=== PATIENT | male | born 1975 | race Caucasian/White ===

== ENCOUNTER → 2024-10-01 08:38 | Outpatient (REF) | payer BC, SELFPAY | LOC: HWRAD 08:38 | PROVIDERS: ATTENDING PHYSICIAN Internal Medicine Gastroenterology; FAMILY PHYSICIAN Family Medicine | DX: K82.4 Cholesterolosis of gallbladder (principal); K90.0 Celiac disease | CPT/HCPCS: 76700 ==

== ENCOUNTER → 2024-10-07 09:15 | Outpatient (REF) | payer BC, SELFPAY | LOC: HWRCS 09:15 | PROVIDERS: ATTENDING PHYSICIAN Student in an Organized Health Care Education/Training Program; FAMILY PHYSICIAN Family Medicine | DX: R06.02 Shortness of breath (principal) | CPT/HCPCS: 93306 ==

== ENCOUNTER → 2025-02-02 07:12 | Outpatient (REF) | payer BC, SELFPAY | LOC: RSP 07:12 | PROVIDERS: ATTENDING PHYSICIAN Student in an Organized Health Care Education/Training Program; FAMILY PHYSICIAN Family Medicine | DX: M34.9 Systemic sclerosis, unspecified (principal); E78.2 Mixed hyperlipidemia | CPT/HCPCS: 71250; 75571; 88738; 94010; 94727; 94729 ==

== ENCOUNTER → 2025-02-02 14:57 | Outpatient (REF) | payer SELFPAY | LOC: RAD 14:57 | PROVIDERS: ATTENDING PHYSICIAN Family Medicine | DX: E78.2 Mixed hyperlipidemia (principal) | CPT/HCPCS: 75571 ==

== ENCOUNTER → 2025-04-28 10:13 | Outpatient (REF) | payer BC, SELFPAY | LOC: HWRAD 10:13 | PROVIDERS: ATTENDING PHYSICIAN Family Medicine; FAMILY PHYSICIAN Family Medicine | DX: R07.89 Other chest pain (principal); R05.1 Acute cough | CPT/HCPCS: 71046; 71100 ==

== ENCOUNTER → 2025-05-04 09:21 | Outpatient (REF) | payer BC, SELFPAY | LOC: EMG 09:21 | PROVIDERS: ATTENDING PHYSICIAN Family Medicine; FAMILY PHYSICIAN Family Medicine | DX: M79.671 Pain in right foot (principal); M34.9 Systemic sclerosis, unspecified | CPT/HCPCS: 95886; 95911 ==

== ENCOUNTER → 2025-06-08 09:43 | Outpatient (REF) | payer BC, SELFPAY | LOC: RST 09:43 | PROVIDERS: ATTENDING PHYSICIAN Student in an Organized Health Care Education/Training Program; FAMILY PHYSICIAN Family Medicine; REFERRING PHYSICIAN Internal Medicine Gastroenterology | DX: M34.9 Systemic sclerosis, unspecified (principal) | CPT/HCPCS: 74230; 92611 ==